=== PATIENT | female | born 1980 | race Caucasian/White ===

== ENCOUNTER 2019-07-23 13:42 | Emergency (ER) | payer MEDICAID ==
[~2019-07-23] VITALS: Ht 162.6 cm; Wt 112.0 kg
[2019-07-23 13:44] VITALS: BP 159/80
== END 2019-07-23 14:20 | disposition home or self-care (01) ==
LOC: ER 13:43
DX: F07.81 Postconcussional syndrome (principal); Z88.0 Allergy status to penicillin
CPT/HCPCS: 99281